=== PATIENT | female | born 1990 | race Caucasian/White ===

== ENCOUNTER 2019-03-09 20:37 | Outpatient (CLI) | payer MEDICAID ==
[2019-03-09 21:33] LABS: ADD UMIC YES; UR ASCORBIC ACID NEGATIVE (NEGATIVE); UR BILIRUBIN (Dip) NEGATIVE (NEGATIVE); UR BLOOD (Dip) 1+ mg/dL (NEGATIVE); UR CLARITY CLEAR (CLEAR); UR COLOR STRAW (YELLOW); UR GLUCOSE (Dip) NEGATIVE (NEGATIVE); UR KETONES (Dip) NEGATIVE (NEGATIVE); UR LEUKOCYTE ESTERASE (Dip) NEGATIVE Leu/ul (NEGATIVE); UR NITRITE (Dip) NEGATIVE (NEGATIVE); UR RBC 0 /HPF (0-5); UR SPECIFIC GRAVITY (Dip) 1.005 (1.003-1.030); UR TOTAL PROTEIN (Dip) NEGATIVE (NEGATIVE); UR UROBILINOGEN (Dip) NEGATIVE (NEGATIVE); UR WBC 0 /HPF (0-5)
== END 2019-03-10 01:05 | disposition home or self-care (01) ==
LOC: OBT 20:37 → L-D 20:38
DX: O44.02 Complete placenta previa NOS or without hemorrhage, second trimester (principal); Z3A.23 23 weeks gestation of pregnancy
CPT/HCPCS: 76815; 76817; 81001

== ENCOUNTER 2019-04-26 07:09 | Inpatient (IN) | payer MEDICAID ==
[2019-04-26 08:22] LABS: ADD MAN DIFF? NO
[2019-04-26 08:26] LABS: BASOPHILS % 0.2 % (0.0-2.0); EOSINOPHILS # 0.1 10^3/ul (0.0-0.5); EOSINOPHILS % 0.8 % (0.0-7.0); HEMATOCRIT 32.5 % (37.0-47.0); HEMOGLOBIN 10.5 g/dl (12.0-16.0); LYMPHOCYTES # 2.2 10^3/ul (0.8-2.9); LYMPHOCYTES % 19.7 % (15.0-51.0); MEAN CORPUSCULAR HGB CONC 32.3 g/dl (32.0-37.0); MEAN CORPUSCULAR VOLUME 89.8 fl (82.0-101.0); MEAN PLATELET VOLUME 9.7 fl (7.4-10.4); MONOCYTES % 8.6 % (0.0-11.0); NEUTROPHIL # 7.8 10^3/ul (1.6-7.5); NEUTROPHILS % 69.2 % (39.0-77.0); PLATELET COUNT 248 10^3/UL (140-415); RED BLOOD COUNT 3.62 10^6/ul (4.20-5.40); RED CELL DISTRIBUTION WIDTH 14.6 % (11.5-14.5)
[2019-04-26 08:26] LABS: WHITE BLOOD COUNT 11.3 10^3/ul (4.8-10.8)
[2019-04-26 08:47] LABS: INR 0.98; PROTIME 13.1 Sec (11.9-14.9)
[2019-04-26 08:48] LABS: PARTIAL THROMBOPLASTIN TIME 33.3 Sec (23.0-35.0)
[2019-04-26] MEDS: MAGNESIUM SULFATE 4 GM/100 ML 100 ML IV (09:47)
[2019-04-26] MEDS: MAGNESIUM SULFATE 20 GM/500 ML 500 ML IV ×2 (10:24→21:14)
[2019-04-26] MEDS: BETAMET NA PHOS/AC(6 MG/ML) 2 ML INJ SYG IM (11:25)
[2019-04-26 12:46] LABS: MAGNESIUM 4.3 mg/dl (1.7-2.5)
[2019-04-26 14:57] LABS: RAPID PLASMA REAGIN NONREACTIVE (NR)
[2019-04-26] MEDS: LACTATED RINGER'S 1,000 ML IV (15:08)
[2019-04-26 18:20] LABS: MAGNESIUM 5.4 mg/dl (1.7-2.5)
[2019-04-26] MEDS: ACETAMINOPHEN 325 MG TAB PO (21:58)
[2019-04-27 01:29] LABS: MAGNESIUM 5.9 mg/dl (1.7-2.5)
[2019-04-27] MEDS: LACTATED RINGER'S 1,000 ML IV ×3 (04:22→15:51)
[2019-04-27 07:18] LABS: MAGNESIUM 5.8 mg/dl (1.7-2.5)
[2019-04-27] MEDS: MAGNESIUM SULFATE 20 GM/500 ML 500 ML IV ×2 (08:25→11:17)
[2019-04-27] MEDS: BETAMET NA PHOS/AC(6 MG/ML) 2 ML INJ SYG IM (11:21)
[2019-04-27] MEDS: FERROUS SULFATE (EC) 325 MG TAB PO (11:21)
[2019-04-27] MEDS: DOCUSATE SODIUM 100 MG CAP PO (11:21)
[2019-04-27] MEDS: PRENATAL VITAMIN PO (11:21)
[2019-04-27 18:48] LABS: MAGNESIUM 4.2 mg/dl (1.7-2.5)
[2019-04-28] MEDS: LACTATED RINGER'S 1,000 ML IV ×3 (01:02→21:01)
[2019-04-28] MEDS: MAGNESIUM SULFATE 20 GM/500 ML 500 ML IV (01:05)
[2019-04-28 01:12] LABS: MAGNESIUM 3.9 mg/dl (1.7-2.5)
[2019-04-28 06:46] LABS: MAGNESIUM 3.7 mg/dl (1.7-2.5)
[2019-04-28] MEDS: PRENATAL VITAMIN PO (09:55)
[2019-04-28] MEDS: DOCUSATE SODIUM 100 MG CAP PO (09:55)
[2019-04-28] MEDS: FERROUS SULFATE (EC) 325 MG TAB PO (09:55)
[2019-04-28 12:37] LABS: MAGNESIUM 3.6 mg/dl (1.7-2.5)
[2019-04-28 19:24] LABS: MAGNESIUM 3.6 mg/dl (1.7-2.5)
[2019-04-29] MEDS: LACTATED RINGER'S 1,000 ML IV (07:25)
[2019-04-29] MEDS: DOCUSATE SODIUM 100 MG CAP PO (08:52)
[2019-04-29] MEDS: PRENATAL VITAMIN PO (08:52)
[2019-04-29] MEDS: FERROUS SULFATE (EC) 325 MG TAB PO (08:52)
[2019-04-29] MEDS: NACL 0.9% 3 ML SYG IV (16:32)
[2019-04-30] MEDS: PRENATAL VITAMIN PO (09:21)
[2019-04-30] MEDS: FERROUS SULFATE (EC) 325 MG TAB PO (09:21)
[2019-04-30] MEDS: DOCUSATE SODIUM 100 MG CAP PO (09:21)
[2019-04-30] MEDS: NACL 0.9% 3 ML SYG IV (09:25)
[2019-04-30 11:33] LABS: ADD UMIC NO; UR ASCORBIC ACID NEGATIVE (NEGATIVE); UR BILIRUBIN (Dip) NEGATIVE (NEGATIVE); UR BLOOD (Dip) NEGATIVE (NEGATIVE); UR CLARITY CLEAR (CLEAR); UR COLOR STRAW (YELLOW); UR GLUCOSE (Dip) NEGATIVE (NEGATIVE); UR KETONES (Dip) NEGATIVE (NEGATIVE); UR LEUKOCYTE ESTERASE (Dip) NEGATIVE Leu/ul (NEGATIVE); UR NITRITE (Dip) NEGATIVE (NEGATIVE); UR SPECIFIC GRAVITY (Dip) 1.011 (1.003-1.030); UR TOTAL PROTEIN (Dip) NEGATIVE (NEGATIVE); UR UROBILINOGEN (Dip) NEGATIVE (NEGATIVE)
[2019-05-01] MEDS: NACL 0.9% 3 ML SYG IV (00:27)
[2019-05-01] MEDS: DOCUSATE SODIUM 100 MG CAP PO (09:08)
[2019-05-01] MEDS: FERROUS SULFATE (EC) 325 MG TAB PO (09:08)
[2019-05-01] MEDS: PRENATAL VITAMIN PO (09:09)
== END 2019-05-01 17:44 | disposition home or self-care (01) | DRG 833 ==
LOC: OBT 07:09 → L-D 07:09 → OBT 07:15 → L-D 07:15
PROVIDERS: Obstetrics & Gynecology
DX: O44.13 Complete placenta previa with hemorrhage, third trimester (principal); Z3A.30 30 weeks gestation of pregnancy
CPT/HCPCS: 76815; 76818; 81003; 83735; 85025; 85610; 85730; 86592; 86850; 86900; 86901; 86920

== ENCOUNTER 2019-05-26 | Inpatient (IN) | payer MEDICAID ==
[2019-05-26] MEDS ORDERED: MISOPROSTOL 200 MCG TAB PR ×2 (01:00→18:00)
[2019-05-26] MEDS ORDERED: METHYLERGONOVINE 0.2 MG INJ IM ×2 (01:00→18:00)
[2019-05-26] MEDS ORDERED: CARBOPROST 250 MCG INJ IM ×2 (01:00→18:00)
[2019-05-26] MEDS: LACTATED RINGER'S 1,000 ML IV ×2 (02:29→17:44)
[2019-05-26 02:42] LABS: ADD MAN DIFF? NO
[2019-05-26 02:43] LABS: BASOPHILS % 0.2 % (0.0-2.0); EOSINOPHILS # 0.1 10^3/ul (0.0-0.5); EOSINOPHILS % 0.7 % (0.0-7.0); HEMOGLOBIN 10.6 g/dl (12.0-16.0); LYMPHOCYTES # 2.2 10^3/ul (0.8-2.9); LYMPHOCYTES % 17.9 % (15.0-51.0); MEAN CORPUSCULAR HEMOGLOBIN 29.9 pg (29.0-33.0); MEAN CORPUSCULAR HGB CONC 33.1 g/dl (32.0-37.0); MEAN CORPUSCULAR VOLUME 90.4 fl (82.0-101.0); MEAN PLATELET VOLUME 9.1 fl (7.4-10.4); MONOCYTE # 1.1 10^3/ul (0.3-0.9); MONOCYTES % 8.8 % (0.0-11.0); NEUTROPHIL # 8.7 10^3/ul (1.6-7.5); NEUTROPHILS % 70.8 % (39.0-77.0); PLATELET COUNT 243 10^3/UL (140-415); RED BLOOD COUNT 3.54 10^6/ul (4.20-5.40); RED CELL DISTRIBUTION WIDTH 13.8 % (11.5-14.5)
[2019-05-26 02:43] LABS: WHITE BLOOD COUNT 12.3 10^3/ul (4.8-10.8)
[2019-05-26 03:03] LABS: INR 0.99; PROTIME 13.2 Sec (11.9-14.9)
[2019-05-26 03:04] LABS: PARTIAL THROMBOPLASTIN TIME 31.6 Sec (23.0-35.0)
[2019-05-26 05:26] LABS: HEPATITIS B SURFACE ANTIGEN NEGATIVE (NEGATIVE)
[2019-05-26] MEDS ORDERED: morphine SULFATE/PF (10 MG/10 ML) INJ (13:53)
[2019-05-26] MEDS ORDERED: ONDANSETRON 4 MG INJ (13:53)
[2019-05-26] MEDS ORDERED: OXYTOCIN 10 UNIT INJ ×2 (13:53→14:20)
[2019-05-26] MEDS ORDERED: PHENYLephrine 10 MG INJ (14:22)
[2019-05-26] MEDS ORDERED: morphine 2 MG INJ IV (15:00)
[2019-05-26] MEDS ORDERED: NALOXONE (0.4 MG/ML) INJ IV (15:00)
[2019-05-26] MEDS ORDERED: ONDANSETRON 4 MG INJ IV (15:00)
[2019-05-26] MEDS: OXYTOCIN 30 UNITS/LR 500 ML IV ×2 (15:17→18:52)
[2019-05-26 15:42] LABS: RAPID PLASMA REAGIN NONREACTIVE (NR)
[2019-05-26] MEDS: CEFAZOLIN 2 GM/50 ML (PMX) 50 ML IVPB (17:40)
[2019-05-26] MEDS ORDERED: OXYTOCIN 30 UNITS/LR 500 ML IV (18:00)
[2019-05-26] MEDS ORDERED: NA PHOSPHATE/BIPHOS 133 ML ENEMA PR (18:00)
[2019-05-26] MEDS ORDERED: HYDROCODONE/APAP (5/325) TAB PO (18:00)
[2019-05-26] MEDS: LANOLIN HPA 1 PKT TOP (18:52)
[2019-05-26] MEDS: NACL 0.9% 3 ML SYG IV (18:57)
[2019-05-27] MEDS: DIPHENHYDRAMINE 50 MG INJ IV (03:05)
[2019-05-27] MEDS: LACTATED RINGER'S 1,000 ML IV (04:43)
[2019-05-27] MEDS: KETOROLAC 30 MG INJ IV (05:57)
[2019-05-27 07:58] LABS: ADD MAN DIFF? NO
[2019-05-27 08:02] LABS: WHITE BLOOD COUNT 13.4 10^3/ul (4.8-10.8)
[2019-05-27 08:02] LABS: BASOPHILS % 0.2 % (0.0-2.0); EOSINOPHILS # 0.1 10^3/ul (0.0-0.5); EOSINOPHILS % 0.4 % (0.0-7.0); HEMATOCRIT 31.5 % (37.0-47.0); HEMOGLOBIN 10.3 g/dl (12.0-16.0); LYMPHOCYTES # 1.1 10^3/ul (0.8-2.9); LYMPHOCYTES % 8.4 % (15.0-51.0); MEAN CORPUSCULAR HEMOGLOBIN 29.5 pg (29.0-33.0); MEAN CORPUSCULAR HGB CONC 32.7 g/dl (32.0-37.0); MEAN CORPUSCULAR VOLUME 90.3 fl (82.0-101.0); MEAN PLATELET VOLUME 9.3 fl (7.4-10.4); MONOCYTE # 1.1 10^3/ul (0.3-0.9); MONOCYTES % 8.4 % (0.0-11.0); NEUTROPHIL # 10.9 10^3/ul (1.6-7.5); NEUTROPHILS % 81.5 % (39.0-77.0); PLATELET COUNT 212 10^3/UL (140-415); RED BLOOD COUNT 3.49 10^6/ul (4.20-5.40); RED CELL DISTRIBUTION WIDTH 13.9 % (11.5-14.5)
[2019-05-27] MEDS: IBUPROFEN 800 MG TAB PO ×2 (14:15→21:55)
[2019-05-28] MEDS: IBUPROFEN 800 MG TAB PO ×3 (05:39→21:18)
[2019-05-29] MEDS: IBUPROFEN 800 MG TAB PO (05:31)
[2019-05-29] MEDS: MEASLES,MUMPS,RUBELLA VACCINE INJ SC* (09:00)
[2019-05-29] MEDS: DIPHTH/TET/ACEL PERTUSS (ADULT) 0.5 ML VIAL IM* (10:25)
== END 2019-05-29 15:03 | disposition home or self-care (01) | DRG 786 ==
LOC: OBT → L-D → OBT 00:50 → L-D 00:50 → PP1 17:27
PROVIDERS: Obstetrics & Gynecology
PROC: 10D00Z1 Extraction of Products of Conception, Low, Open Approach (ICD-10-PCS; principal; 2019-05-26 16:00)
DX: O60.13X0 Preterm labor second trimester with preterm delivery third trimester, not applicable or unspecified (principal); O44.13 Complete placenta previa with hemorrhage, third trimester; Z3A.33 33 weeks gestation of pregnancy; Z37.0 Single live birth
CPT/HCPCS: 85025; 85610; 85730; 86592; 86850; 86900; 86901; 86920; 87340; 90715; 99464